=== PATIENT | male | born 1955 | race American Indian/Alaskan Native ===

== ENCOUNTER 2017-02-01 20:19 | Emergency (ER) | payer MEDICARE, OTHER ==
[2017-02-01 20:20] VITALS: BMI 25.7
[2017-02-01 20:36] VITALS: O2SAT 96
--- NOTE | 2017-02-01 21:28 | C.PDOC ---
History Of Present Illness 61 y/o male presents to ED with complaint of low grade fever and decreased appetite for 4-5 days. Patient was sent by PMD for workup. Patient notes he smokes 1/2 pack per day. Denies chills, nausea, vomiting, diarrhea, or other associated symptoms. Time Seen by Provider: 02/01/17 21:28 Chief Complaint (Nursing): Fever History Per: Patient History/Exam Limitations: no limitations Onset/Duration Of Symptoms: Days Current Symptoms Are (Timing): Still Present Location Of Pain: None Sick Contacts (Context): None Associated Symptoms: Fever. denies: Cough, Nausea, Vomiting, Diarrhea Ear Symptoms: Bilateral: None Recent travel outside of the [place]: No Past Medical History Reviewed: Historical Data, Nursing Documentation, Vital Signs Vital Signs: Last Vital Signs Temp 98.4 F 02/01/17 20:24 Pulse 85 02/01/17 20:24 Resp 18 02/01/17 20:24 BP 117/78 02/01/17 20:24 Pulse Ox 96 02/01/17 21:49 - Medical History PMH: Asthma, COPD, Depression, Fractures ([id number]), HIV, HTN, Hypercholesterolemia, Pneumonia, Rheumatoid Arthritis, Schizophrenia - [facility] Procedures CORONAR ARTERIOGR-2 CATH (03/06/15) LEFT HEART CARDIAC CATH (03/06/15) LT HEART ANGIOCARDIOGRAM (03/06/15) PERCUTANEOUS TRANSLUMINAL CORONARY ANGIOPLASTY [PTCA] (03/06/15) PROCEDURE ON SINGLE VESSEL (03/06/15) Family History: States: No Known Family Hx - Social History Hx Alcohol Use: No Hx Substance Use: No - Immunization History Hx Tetanus Toxoid Vaccination: Yes Hx Influenza Vaccination: Yes Hx Pneumococcal Vaccination: Yes Review Of Systems Constitutional: Positive for: Fever, Other (decreased appetite) ENT: Negative for: Throat Pain Cardiovascular: Negative for: Chest Pain Respiratory: Negative for: Cough, Shortness of Breath Gastrointestinal: Negative for: Nausea, Vomiting, Abdominal Pain, Diarrhea Skin: Negative for: Rash Neurological: Negative for: Headache, Dizziness Physical Exam - Physical Exam Appears: Non-toxic, Other (AAO) Skin: Normal Color, Warm, Dry Oral Mucosa: Moist Throat: Normal, No Erythema, No Exudate Chest: Symmetrical, Other (Portacath right chest) Cardiovascular: Rhythm Regular Respiratory: No Rales, Rhonchi (scattered), No Wheezing Gastrointestinal/Abdominal: Soft, No Tenderness, No Guarding, No Rebound Extremity: Normal ROM, Capillary Refill (< 2 sec. ) Neurological/Psych: Oriented x3 ED Course And Treatment - Laboratory Results Result Diagrams: 02/01/17 21:48 02/01/17 21:48 ECG: Interpreted By Me, Viewed By Me ECG Rhythm: Sinus Rhythm (77), Nonspecific Changes O2 Sat by Pulse Oximetry: 96 Pulse Ox Interpretation: Normal - Radiology CXR: Interpreted by Me, Viewed By Me Progress Note: CxR, VBG, bloodwork, IVFs, Toradol ordered. Reevaluation Time: 00:17 Reassessment Condition: Improved Medical Decision Making Medical Decision Making: Upon provider reevaluation patient is feeling better, is medically stable, and requires no further treatment in the ED at this time. Patient will be discharged home with Rx for akbuterol, zithromax. Counseling was provided and all questions were answered regarding diagnosis and need for follow up with Dr Hernandez. There is agreement to discharge plan. Return if symptoms persist or worsen. Disposition Counseled Patient/Family Regarding: Studies Performed, Diagnosis, Need For Followup, Rx Given - Disposition Referrals: Nicole Hernandez MD [Medical Doctor] - Disposition: HOME/ ROUTINE Disposition Time: 21:28 Condition: FAIR Additional Instructions: Please return if symptoms recur Prescriptions: Albuterol/Ipratropium [Duoneb 3 MG/3 Ml-0.5 MG/3 Ml 3 Ml] 3 ml IH QID #50 neb Azithromycin [Zithromax Tri-To] 500 mg PO DAILY #3 tablet Instructions: Acute Bronchitis (ED) - Clinical Impression Clinical Impression: Bronchitis - Scribe Statement The provider has reviewed the documentation as recorded by the Tootie Bustamante Provider Scribe Attestation: All medical record entries made by the Tootie were at my direction and personally dictated by me. I have reviewed the chart and agree that the record accurately reflects my personal performance of the history, physical exam, medical decision making, and the department course for this patient. I have also personally directed, reviewed, and agree with the discharge instructions and disposition.
[2017-02-01] MEDS ORDERED: Sodium Chloride 0.9% 1,000 ML IV ONE (21:39)
[2017-02-01 21:51] LABS: VENOUS BLOOD GAS PCO2 44 mmHg (40-60)
[2017-02-01 21:59] LABS: BASO % 0.1 % (0.0-2.0); EOS % 0.2 % (0.0-4.0); HEMATOCRIT 33.8 % (35.0-51.0); LYMPH # 2.6 K/uL (1.0-4.3); LYMPH % 34.7 % (20.0-40.0); MEAN CELL VOLUME 93.7 fL (80.0-94.0); MEAN CORPUSCULAR HEMOGLOBIN 30.4 pg (27.0-31.0); MEAN CORPUSCULAR HGB CONC 32.5 g/dL (33.0-37.0); MEAN PLATELET VOLUME 9.2 fL (7.2-11.7); MONO # 0.9 K/uL (0.0-0.8); MONO % 12.4 % (0.0-10.0); RED CELL DISTRIBUTION WIDTH 14.7 % (11.5-14.5); WHITE BLOOD COUNT 7.5 K/uL (4.8-10.8)
[2017-02-01 22:05] LABS: CHLORIDE 96 mmol/L (98-107); POTASSIUM 3.2 mmol/L (3.6-5.2); SODIUM 137 mmol/L (132-148)
[2017-02-01 22:07] LABS: ALKALINE PHOSPHATASE 81 U/L (38-126); AST/SGOT 20 U/L (17-59); BILIRUBIN,TOTAL 0.3 mg/dL (0.2-1.3); CARBON DIOXIDE 26 mmol/L (22-30); GFR AFRICAN-AMERICAN > 60; TOTAL PROTEIN 7.5 g/dL (6.3-8.3)
[2017-02-01 22:08] LABS: ALT/SGPT 12 U/L (21-72); BLOOD UREA NITROGEN 9 mg/dL (9-20); CALCIUM 8.8 mg/dl (8.6-10.4); GLUCOSE,RANDOM 96 mg/dL (75-110)
[2017-02-01 22:23] LABS: RBC URINE 35 /hpf (0-3); URINE BACTERIA OCC (<OCC); URINE BILIRUBIN NEGATIVE (NEGATIVE); URINE BLOOD 2+ (NEGATIVE); URINE COLOR Yellow (YELLOW); URINE GLUCOSE (UA) NORMAL (Normal); URINE KETONE NEGATIVE (NEGATIVE); URINE LEUKOCYTE ESTERASE NEG Leu/uL (Negative); URINE PROTEIN 2+ mg/dL (NEGATIVE); URINE UROBILINOGEN NORMAL mg/dL (0.2-1.0)
[2017-02-01 22:28] LABS: WBC URINE 10 /hpf (0-5)
[2017-02-01] MEDS ORDERED: Potassium Chloride 10 mEq ER Tab PO STA (22:29)
[2017-02-01] MEDS ORDERED: Potassium Chloride 20 mEq ER Tab PO ONE (23:17)
[2017-02-01] MEDS ORDERED: Piperacillin/Tazobact 3.375 gm 100 ML IVPB STA (23:27)
[2017-02-01] MEDS ORDERED: Piperacillin/Tazobact 3.375 gm 100 ML IVPB ONE (23:46)
[2017-02-02 00:34] VITALS: BP 148/88; PULSE 64; RESP 16; TEMP 98.3
--- NOTE | 2017-02-02 11:24 | RAD ---
HISTORY: SOB COMPARISON: Chest x-ray performed 12/08/16, CTA chest performed 01/05/16 TECHNIQUE: Chest PA and lateral FINDINGS: Distal tip of right-sided MediPort extends to the cavoatrial junction. LUNGS: Extensive emphysematous changes. Biapical pleural thickening. Mild bibasilar atelectasis. No focal consolidation. Please note that chest x-ray has limited sensitivity for the detection of pulmonary masses. PLEURA: No significant pleural effusion identified. No definite pneumothorax . CARDIOVASCULAR: Heart size appears within normal limits. OSSEOUS STRUCTURES: Partially imaged severe degenerative changes of the right shoulder. Osseous demineralization. Degenerative changes. VISUALIZED UPPER ABDOMEN: Unremarkable. OTHER FINDINGS: None. IMPRESSION: Right-sided MediPort. Biapical pleural thickening. Mild bibasilar atelectasis. Extensive emphysematous changes.
--- NOTE | 2017-04-03 14:45 | CARD ---
APPROVED REPORT EKG Measurement Heart [id number] CO 148P50 [id number] <Conclusion> Normal sinus rhythm Nonspecific ST and T wave abnormality Abnormal ECG
== END 2017-02-02 00:33 | disposition home or self-care (01) ==
LOC: C.ER 20:19
DX: J40 Bronchitis, not specified as acute or chronic (principal); E87.6 Hypokalemia; Z72.0 Tobacco use
CPT/HCPCS: 71020; 80053; 81001; 82803; 84484; 85025; 85730; 87040; 87086; 96361; 96365; 96375; 99284; J1885; J2543; J7040

== ENCOUNTER 2017-07-15 15:40 | Emergency (ER) | payer MEDICARE, OTHER ==
[2017-07-15 15:41] VITALS: BMI 24.5
[2017-07-15 16:03] VITALS: BP 138/81; PULSE 75; RESP 14; TEMP 97.9; O2SAT 95
--- NOTE | 2017-07-15 16:20 | C.PDOC ---
History Of Present Illness Antelmo Marshall is a 62 year old male, with a past medical history of rheumatoid arthritis and diabetes, who presents to the emergency department with his complaining of R hip pain radiating to foot associated with numbness and tingling x years. Patient describes the pain as a burning sensation and also reports bilateral shoulder pain for years. He denies any fever or shortness of breath. convinced patient to come to ED today because he has been complaining of these pains for so long. PMD: Nicole Hernandez Time Seen by Provider: 07/15/17 15:53 Chief Complaint (Nursing): Lower Extremity Problem/Injury History Per: Patient History/Exam Limitations: no limitations Onset/Duration Of Symptoms: Days (x2 months) Current Symptoms Are (Timing): Still Present Additional History Per: Family Past Medical History Reviewed: Historical Data, Nursing Documentation, Vital Signs Vital Signs: Last Vital Signs Temp 97.9 F 07/15/17 16:00 Pulse 75 07/15/17 16:00 Resp 14 07/15/17 16:00 BP 138/81 07/15/17 16:00 Pulse Ox 95 07/15/17 16:31 - Medical History PMH: Asthma, COPD, Depression, Fractures ([id number]), HIV, HTN, Hypercholesterolemia, Pneumonia, Rheumatoid Arthritis, Schizophrenia Denies: Chronic Kidney Disease Surgical History: Denies: Pacemaker - [facility] Procedures CORONAR ARTERIOGR-2 CATH (03/06/15) LEFT HEART CARDIAC CATH (03/06/15) LT HEART ANGIOCARDIOGRAM (03/06/15) PERCUTANEOUS TRANSLUMINAL CORONARY ANGIOPLASTY [PTCA] (03/06/15) PROCEDURE ON SINGLE VESSEL (03/06/15) Family History: States: Unknown Family Hx - Social History Hx Tobacco Use: Yes (<10 cigarettes daily) Hx Alcohol Use: No Hx Substance Use: No - Immunization History Hx Tetanus Toxoid Vaccination: Yes Hx Influenza Vaccination: No Hx Pneumococcal Vaccination: Yes Review Of Systems Except As Marked, All Systems Reviewed And Found Negative. Constitutional: Negative for: Fever Respiratory: Negative for: Shortness of Breath Musculoskeletal: Positive for: Shoulder Pain, Other (b/l hip pain radiating to feet) Physical Exam - Physical Exam Additional Physical Exam Comments: Constitutional: No acute distress. Head: Normocephalic. Atraumatic. Eyes: PERRL. ENT: Moist mucous membranes. Neck: Supple. Cardiovascular: Regular rate. Radial pulse 2+ bilaterally. Chest: No tenderness. Respiratory: Clear to auscultation bilaterally. GI: Soft. Nontender. Nondistended. Back: No CVA tenderness. Musculoskeletal: Full ROM x4 shoulder, hips, and knees. Positive straight leg raise on right. No swelling of extremities. Skin: No rash. Neurologic: Alert, no focal deficit. Sensation to touch intact bilaterally. ED Course And Treatment O2 Sat by Pulse Oximetry: 95 (RA) Pulse Ox Interpretation: Normal Medical Decision Making Medical Decision Making: Initial Plan: --Toradol 60 mg IM Encouraged patient to seek further evaluation with PMD for chronic pains. No acute symptoms, no indication of sepsis, CVA, or any other emergent findings. Scribe Attestation Written by Carl Malik acting as a scribe for Kwan James MD All medical record entries made by the Scribe were at my direction and personally dictated by me. I have reviewed the chart and agree that the record accurately reflects my personal performance of the history, physical exam, medical decision making, and the department course for this patient. I have also personally directed, reviewed, and agree with the discharge instructions and disposition. Disposition - Disposition Referrals: Nicole Hernandez MD [Medical Doctor] - Disposition: HOME/ ROUTINE Disposition Time: 16:19 Condition: STABLE Instructions: Lumbar Radiculopathy (ED), Arthritis (ED) Forms: [employer] (Lithuanian) - Clinical Impression Clinical Impression: Shoulder pain, Hip pain
== END 2017-07-15 16:50 | disposition home or self-care (01) ==
LOC: C.ER 15:40
DX: M25.551 Pain in right hip (principal); M25.512 Pain in left shoulder; M25.511 Pain in right shoulder
CPT/HCPCS: 82948; 96372; 99284; J1885

== ENCOUNTER 2017-09-04 17:32 | Emergency (ER) | payer MEDICARE, OTHER ==
[2017-09-04 17:33] VITALS: BMI 25.8
[2017-09-04 17:44] VITALS: TEMP 97.7
[2017-09-04] MEDS ORDERED: Sodium Chloride 0.9% 1,000 ML IV ONE (19:12)
[2017-09-04 19:51] LABS: RBC URINE 1 /hpf (0-3); URINE BILIRUBIN NEGATIVE (NEGATIVE); URINE BLOOD NEGATIVE (NEGATIVE); URINE COLOR Yellow (YELLOW); URINE GLUCOSE (UA) NORMAL (Normal); URINE KETONE NEGATIVE (NEGATIVE); URINE LEUKOCYTE ESTERASE NEG Leu/uL (Negative); URINE PROTEIN 2+ mg/dL (NEGATIVE); URINE UROBILINOGEN NORMAL mg/dL (0.2-1.0); WBC URINE 2 /hpf (0-5)
[2017-09-04 20:16] LABS: CHLORIDE 100 mmol/L (98-107)
[2017-09-04 20:17] LABS: POTASSIUM 3.4 mmol/L (3.6-5.2); SODIUM 137 mmol/L (132-148)
[2017-09-04 20:19] LABS: ALB/GLOB RATIO 1.1 (1.0-2.1); AST/SGOT 20 U/L (17-59); BILIRUBIN,TOTAL 0.6 mg/dL (0.2-1.3); CARBON DIOXIDE 30 mmol/L (22-30); GFR AFRICAN-AMERICAN > 60; TOTAL PROTEIN 7.3 g/dL (6.3-8.3)
[2017-09-04 20:20] LABS: ALKALINE PHOSPHATASE 92 U/L (38-126); ALT/SGPT 29 U/L (21-72); BLOOD UREA NITROGEN 11 mg/dL (9-20); CALCIUM 8.7 mg/dl (8.6-10.4); GLUCOSE,RANDOM 81 mg/dL (75-110)
[2017-09-04 21:00] LABS: BASO % 0.3 % (0.0-2.0); EOS # 0.1 K/uL (0.0-0.7); HEMATOCRIT 36.6 % (35.0-51.0); LYMPH # 3.1 K/uL (1.0-4.3); LYMPH % 22.9 % (20.0-40.0); MEAN CELL VOLUME 98.4 fL (80.0-94.0); MEAN CORPUSCULAR HEMOGLOBIN 33.2 pg (27.0-31.0); MEAN CORPUSCULAR HGB CONC 33.8 g/dL (33.0-37.0); MEAN PLATELET VOLUME 8.9 fL (7.2-11.7); MONO # 0.7 K/uL (0.0-0.8); MONO % 5.4 % (0.0-10.0); RED CELL DISTRIBUTION WIDTH 13.3 % (11.5-14.5); WHITE BLOOD COUNT 13.7 K/uL (4.8-10.8)
--- NOTE | 2017-09-04 21:59 | C.PDOC ---
History Of Present Illness Patient presents to ED c/o diffuse body aches, particularly in his B/L shoulders. He also c/o numbness/tingling pain in his feet. Patient has h/o rheumatoid arthritiis, HIV (on HAART), DM, HTN, COPD. He denies falls/injuries , chest pain, SOB, cough, fever, rash. He states he has been seen previously by orthopedics, was offered physical therapy but has not has surgery of shoulders. Time Seen by Provider: 09/04/17 18:32 Chief Complaint (Nursing): Medical Clearance History Per: Patient, Family ( at bedside ) History/Exam Limitations: no limitations Onset/Duration Of Symptoms: Hrs Current Symptoms Are (Timing): Still Present Severity: Moderate Past Medical History Reviewed: Historical Data, Nursing Documentation, Vital Signs Vital Signs: Last Vital Signs Temp 97.7 F 09/04/17 17:41 Pulse 73 09/04/17 22:10 Resp 20 09/04/17 22:10 BP 154/93 H 09/04/17 22:10 Pulse Ox 97 09/04/17 22:16 - Medical History PMH: Asthma, COPD, Depression, Fractures (RT.[id number].AGO), HIV, HTN, Hypercholesterolemia, Pneumonia, Rheumatoid Arthritis, Schizophrenia Surgical History: No Surg Hx Other Surgeries: right chest portacath - [facility] Procedures CORONAR ARTERIOGR-2 CATH (03/06/15) LEFT HEART CARDIAC CATH (03/06/15) LT HEART ANGIOCARDIOGRAM (03/06/15) PERCUTANEOUS TRANSLUMINAL CORONARY ANGIOPLASTY [PTCA] (03/06/15) PROCEDURE ON SINGLE VESSEL (03/06/15) Family History: States: No Known Family Hx - Social History Hx Tobacco Use: Yes (<10 cigarettes daily) Hx Alcohol Use: No Hx Substance Use: No - Immunization History Hx Tetanus Toxoid Vaccination: Yes Hx Influenza Vaccination: No Hx Pneumococcal Vaccination: Yes Review Of Systems Except As Marked, All Systems Reviewed And Found Negative. Constitutional: Negative for: Fever, Chills Cardiovascular: Negative for: Chest Pain, Palpitations Respiratory: Negative for: Cough, Shortness of Breath Gastrointestinal: Negative for: Nausea, Vomiting, Abdominal Pain, Diarrhea Musculoskeletal: Positive for: Shoulder Pain (B/L), Other (body aches) Physical Exam - Physical Exam Appears: Well, Non-toxic, In Acute Distress (in moderate pain) Skin: Normal Color, Warm, Dry, No Rash Eye(s): bilateral: Normal Inspection Oral Mucosa: Moist Chest: Symmetrical Cardiovascular: Rhythm Regular Respiratory: Normal Breath Sounds, No Rales, No Rhonchi, No Wheezing Gastrointestinal/Abdominal: Normal Exam, Bowel Sounds, Soft, No Tenderness Back: Normal Inspection, No CVA Tenderness, No Vertebral Tenderness, No Paraspinal Tenderness Extremity: Normal ROM (decreased ROM B/L shoulder R>L, due to pain), Tenderness (B/L shoulders diffuse TTP without deformity/erythema/ swelling), Capillary Refill (< 2sec all digits), No Deformity Extremity: Bilateral: Atraumatic, Normal Color And Temperature Pulses: Left Radial: Normal, Right Radial: Normal, Left Dorsalis Pedis: Normal, Right Dorsalis Pedis: Normal Neurological/Psych: Oriented x3, Normal Speech, Normal Cognition Gait: Steady ED Course And Treatment - Laboratory Results Result Diagrams: 09/04/17 20:57 09/04/17 19:42 O2 Sat by Pulse Oximetry: 97 (RA) Pulse Ox Interpretation: Normal - Other Rad shoulders B/L X-Ray: Interpreted by Me, Viewed By Me (osteopenia/porosis and arthritic changes of B/L humeral heads, no fractures/dislocations) Progress Note: Blood work, Xrays of B/L shoulders, infleunza swab ordered and reviewed. Patient given IV NS bolus, IV solumedrol (for RA exacerbation), and IV toradol. Reevaluation Time: 22:05 Reassessment Condition: Improved (On reassessment, patient is resting comfortably and states he feels better. He is requesting something for numbness /tingling in B/L feet - suspect peripheral neuropathy due to diabetes/HIV. Rxs given for gabapentin, prednisone (for RA exacerbation) and naprosyn. He was instructed to follow up with PMD in 1-2 days, and with orthopedics within 1 week. Patient understands he should return to ED if symptoms worsen.) Disposition Counseled Patient/Family Regarding: Studies Performed, Diagnosis, Need For Followup, Rx Given - Disposition Referrals: Nicole Hernandez MD [Medical Doctor] - Jn Larsen III, MD [Staff Provider] - Disposition: HOME/ ROUTINE Disposition Time: 22:00 Condition: STABLE Additional Instructions: FOLLOW UP WITH ORTHOPEDICS WITHIN 1 WEEK USE MEDICATIONS DIRECTED RETURN TO ER IF SYMPTOMS WORSEN Prescriptions: Gabapentin 300 mg PO TID #90 capsule Naproxen 375 mg PO BID PRN #20 tablet PRN Reason: pain predniSONE [predniSONE Tab] 40 mg PO DAILY #6 tab Instructions: Rheumatoid Arthritis (ED), Peripheral Neuropathy (ED) Forms: [employer] (Amharic) Print Language: WELSH - POA Present On Arrival: None - Clinical Impression Clinical Impression: Rheumatoid arthritis, Shoulder arthritis, Neuropathy, peripheral
[2017-09-04 22:10] VITALS: BP 154/93; PULSE 73; RESP 20
[2017-09-04 22:18] VITALS: O2SAT 97
--- NOTE | 2017-09-05 09:23 | RAD ---
PROCEDURE: Radiographs of both shoulders HISTORY: b/l shoulder pain COMPARISON: No prior. FINDINGS: BONES: Right shoulder: Mixed mineralization consistent sclerosis of the humeral head noted. There is some flattening of the superolateral humeral head. It is difficult to exclude any concomitant fractures here. No gross cortical fractures are noted. However prior old fractures with secondary cystic subchondral cystic changes with or without avascular necrosis is difficult to exclude. Findings are noted bilaterally. Cystic changes also extend into each glenoid fossa-right greater than left. Left shoulder: Same as in the right shoulder. JOINTS: Right shoulder: Glenohumeral advanced osteoarthrosis. Mild right acromioclavicular joint arthrosis. Left shoulder: Glenohumeral advanced osteoarthrosis. Mild left acromioclavicular joint arthrosis SOFT TISSUES: Right shoulder: Bilateral periarticular shoulder ossific occasion/ calcifications-calcific debris, loose bodies, calcific tendinopathy and/or calcific bursitis or all differential considerations. Left shoulder: Similar findings to this mention in the right shoulder are present in the left OTHER FINDINGS: One of the images appears to be mislabeled as left the transscapular view bile was repeated and also labeled left that will showing the Port-A-Cath is the right side IMPRESSION: Grossly abnormal humeral head bone mineralization. Possibility of a prior trauma including prior dislocations with secondary humeral head remodeling/slight flattening is a consideration. Secondary osteoarthritic changes are noted. Underlying sub chondral extensive coalescence cystic changes are present in each shoulder right greater than left. The possibility of avascular necrosis in each shoulder needs to be considered. No acute fractures or acute dislocations are appreciated.
--- NOTE | 2017-09-05 12:19 | CARD ---
APPROVED REPORT EKG Measurement Heart [id number] OR 142P55 [id number] <Conclusion> Normal sinus rhythm Nonspecific ST and T wave abnormality Abnormal ECG
== END 2017-09-04 22:23 | disposition home or self-care (01) ==
LOC: C.ER 17:32
DX: M06.812 Other specified rheumatoid arthritis, left shoulder (principal); M06.811 Other specified rheumatoid arthritis, right shoulder; G62.9 Polyneuropathy, unspecified; I10 Essential (primary) hypertension; E78.00 Pure hypercholesterolemia, unspecified; F17.210 Nicotine dependence, cigarettes, uncomplicated
CPT/HCPCS: 73030; 80053; 81001; 82948; 85025; 87804; 93005; 96361; 96374; 96375; 99282; G0480; J1885; J2930; J7040

== ENCOUNTER 2018-09-12 11:39 | Emergency (ER) | payer MEDICARE, OTHER ==
[2018-09-12 11:40] VITALS: BMI 24.2
[2018-09-12 11:44] VITALS: BP 152/83; PULSE 71; RESP 18; TEMP 98; O2SAT 98
--- NOTE | 2018-09-12 12:26 | C.PDOC ---
History Of Present Illness 63 year old male with a history of HIV, paranoid schizophrenia, and sciatica presents to the ED with his for evaluation of bilateral lower back pain that radiates down to the right leg for 6 days. Patient admits to taking weed for the pain, noticed mild improvement. Denies trauma, leg weakness, numbness, tingling, fever, history of kidney stones/issues, and any other associated symptoms. Time Seen by Provider: 09/12/18 11:56 Chief Complaint (Nursing): Back Pain History Per: Patient History/Exam Limitations: no limitations Onset/Duration Of Symptoms: Days Current Symptoms Are (Timing): Still Present Past Medical History Reviewed: Historical Data, Nursing Documentation, Vital Signs Vital Signs: Last Vital Signs Temp 98 F 09/12/18 11:43 Pulse 71 09/12/18 11:43 Resp 18 09/12/18 11:43 BP 152/83 H 09/12/18 11:43 Pulse Ox 98 09/12/18 11:43 - Medical History PMH: Asthma, COPD, Depression, Fractures ([id number].AGO), HIV, HTN, Hypercholesterolemia, Pneumonia, Rheumatoid Arthritis, Schizophrenia Denies: Chronic Kidney Disease Surgical History: Denies: Pacemaker - [facility] Procedures CORONAR ARTERIOGR-2 CATH (03/06/15) LEFT HEART CARDIAC CATH (03/06/15) LT HEART ANGIOCARDIOGRAM (03/06/15) PERCUTANEOUS TRANSLUMINAL CORONARY ANGIOPLASTY [PTCA] (03/06/15) PROCEDURE ON SINGLE VESSEL (03/06/15) Family History: States: Unknown Family Hx - Social History Hx Tobacco Use: Yes (<10 cigarettes daily) Hx Alcohol Use: No Hx Substance Use: No - Immunization History Hx Tetanus Toxoid Vaccination: Yes Hx Influenza Vaccination: No Hx Pneumococcal Vaccination: Yes Review Of Systems Constitutional: Negative for: Fever, Other (trauma. ) Musculoskeletal: Positive for: Back Pain (bilateral lower back pain. ) Neurological: Negative for: Weakness, Numbness, Incoordination, Other Physical Exam - Physical Exam Appears: Well, Non-toxic, No Acute Distress Skin: Normal Color, Warm, Dry Head: Atraumatic, Normacephalic Eye(s): bilateral: Normal Inspection Neck: Normal ROM, Supple Back: No CVA Tenderness, No Vertebral Tenderness, No Paraspinal Tenderness, Other (tender to PSIS. ) Neurological/Psych: Oriented x3, Normal Speech, Normal Motor, Normal Sensation, Normal Reflexes, Other (normal DTR. ) ED Course And Treatment O2 Sat by Pulse Oximetry: 98 Medical Decision Making Medical Decision Making: Plan: -Toradol Progress/Update: : Patient requests to leave once given Toradol without reassessment. Patient advised to follow up with PMD. Disposition Counseled Patient/Family Regarding: Diagnosis, Need For Followup - Disposition Disposition: HOME/ ROUTINE Disposition Time: : Prescriptions: Ketorolac Tromethamine [Toradol] 10 mg PO Q6 PRN #15 tab PRN Reason: Pain, Severe (8-10) Instructions: Low Back Pain in Adults, Sciatica (DC) Forms: [employer] (Monegasque), General Discharge Instructions - POA Present On Arrival: None - Clinical Impression Clinical Impression: Low back pain, Sciatica - PA / SUPERVISOR RECORDS CHANGE / Resident Statement MD/DO has reviewed & agrees with the documentation as recorded. - Scribe Statement The provider has reviewed the documentation as recorded by the Scribe (Marley Kong) Provider Attestation: All medical record entries made by the Scribe were at my direction and personally dictated by me. I have reviewed the chart and agree that the record accurately reflects my personal performance of the history, physical exam, medical decision making, and the department course for this patient. I have also personally directed, reviewed, and agree with the discharge instructions and disposition.
== END 2018-09-12 12:37 | disposition home or self-care (01) ==
LOC: C.ER 11:39
DX: M54.40 Lumbago with sciatica, unspecified side (principal); I10 Essential (primary) hypertension; E78.00 Pure hypercholesterolemia, unspecified; M06.9 Rheumatoid arthritis, unspecified; Z21 Asymptomatic human immunodeficiency virus [HIV] infection status
CPT/HCPCS: 96372; 99283; J1885

== ENCOUNTER → 2019-01-04 | Outpatient (CLI) | payer MEDICARE, OTHER | LOC: C.LAB 11:46 | DX: E11.9 Type 2 diabetes mellitus without complications (principal); D64.9 Anemia, unspecified ==

== ENCOUNTER 2019-01-19 15:58 | Emergency (ER) | payer MEDICARE, OTHER ==
[2019-01-19 15:59] VITALS: BMI 23.9
[2019-01-19 16:09] VITALS: BP 156/88; PULSE 74; RESP 17; TEMP 98.4; O2SAT 95
--- NOTE | 2019-01-19 16:52 | RAD ---
PROCEDURE: Left Hip X-ray Radiographs. HISTORY: left hip/pelvic pain after fall COMPARISON: None. TECHNIQUE: 2 views obtained. FINDINGS: BONES: No evidence of acute fracture JOINTS: Moderate to severe osteoarthritic changes noted bilaterally. SOFT TISSUES: Normal. OTHER FINDINGS: None. IMPRESSION: No evidence of acute fracture or dislocation. Moderate to severe osteoarthritic changes.
--- NOTE | 2019-01-19 17:07 | C.PDOC ---
History Of Present Illness 63 y/o male comes in complaining of left hip pain and bilateral shoulder pain, both chronic in nature. She reports she tripped and fell today, landing on his buttocks and left hip, which worsened the pain. Patient denies any head injuries, LOC, chest pain, SOB, or palpitations. Time Seen by Provider: 01/19/19 16:03 Chief Complaint (Nursing): Medical Clearance History Per: Patient History/Exam Limitations: no limitations Onset/Duration Of Symptoms: Days Current Symptoms Are (Timing): Still Present Past Medical History Reviewed: Historical Data, Nursing Documentation, Vital Signs Vital Signs: Last Vital Signs Temp 98.4 F 01/19/19 16:08 Pulse 74 01/19/19 16:08 Resp 17 01/19/19 16:08 BP 156/88 H 01/19/19 16:08 Pulse Ox 95 01/19/19 16:08 - Medical History PMH: Asthma, COPD, Depression, Fractures ([id number]), HIV, HTN, Hypercholesterolemia, Pneumonia, Rheumatoid Arthritis, Schizophrenia Denies: Chronic Kidney Disease Surgical History: Denies: Pacemaker - [facility] Procedures CORONAR ARTERIOGR-2 CATH (03/06/15) LEFT HEART CARDIAC CATH (03/06/15) LT HEART ANGIOCARDIOGRAM (03/06/15) PERCUTANEOUS TRANSLUMINAL CORONARY ANGIOPLASTY [PTCA] (03/06/15) PROCEDURE ON SINGLE VESSEL (03/06/15) Family History: States: No Known Family Hx - Social History Hx Tobacco Use: Yes (<10 cigarettes daily) Hx Alcohol Use: No Hx Substance Use: No - Immunization History Hx Tetanus Toxoid Vaccination: Yes Hx Influenza Vaccination: No Hx Pneumococcal Vaccination: Yes Review Of Systems Constitutional: Negative for: Fever, Chills Cardiovascular: Negative for: Chest Pain, Palpitations Respiratory: Negative for: Shortness of Breath Gastrointestinal: Negative for: Vomiting Musculoskeletal: Positive for: Shoulder Pain (bilateral), Other (Left hip pain). Negative for: Neck Pain Neurological: Negative for: Other (LOC) Physical Exam - Physical Exam Appears: Non-toxic, Other (In mild pain) Skin: Warm, Dry Head: Atraumatic, Normacephalic Eye(s): bilateral: Normal Inspection Oral Mucosa: Moist Neck: Supple Cardiovascular: Rhythm Regular, No Murmur Respiratory: Normal Breath Sounds, No Rales, No Rhonchi, No Wheezing Extremity: Tenderness (left lateral hip mildly tender to palpation, no swelling, ecchymosis, or deformity), No Deformity, Other (No external rotation of left leg) Extremity: Bilateral: Normal Color And Temperature Neurological/Psych: Oriented x3, Normal Speech ED Course And Treatment O2 Sat by Pulse Oximetry: 95 (RA) Pulse Ox Interpretation: Normal - Other Rad Hip/Pelvis XR X-Ray: Read By Radiologist Interpretation: FINDINGS: BONES: No evidence of acute fracture. JOINTS: Moderate to severe osteoarthritic changes noted bilaterally. SOFT TISSUES: Normal. OTHER FINDINGS: None. IMPRESSION: No evidence of acute fracture or dislocation. Moderate to severe osteoarthritic changes. Progress Note: Patient was given toradol and flexeril for the pain. Lidoderm patch was applied and patient was given prednisone. XR of hip/pelvis ordered, which showed no acute fractures. Patient will be discharged home. Disposition Counseled Patient/Family Regarding: Studies Performed, Diagnosis, Need For Followup, Rx Given - Disposition Referrals: Wally Thompson MD [Medical Doctor] - Jn Larsen III, MD [Staff Provider] - Disposition: HOME/ ROUTINE Disposition Time: 17:05 Condition: STABLE Additional Instructions: FOLLOW UP WITH YOUR DOCTOR IN 1-2 DAYS, AND WITH ORTHOPEDICS WITHIN 1 WEEK USE PAIN MEDICATIONS DIRECTED/NEEDED RETURN TO ER IF SYMPTOMS WORSEN Prescriptions: Cyclobenzaprine [Flexeril] 10 mg PO BID PRN #15 tab PRN Reason: Muscle Spasm Naproxen 375 mg PO BID PRN #20 tablet PRN Reason: pain predniSONE [predniSONE Tab] 40 mg PO DAILY #6 tab Instructions: Hip Pain (DC) Forms: [employer] (Cape Verdean) Print Language: HEBREW - POA Present On Arrival: Falls Or Trauma - Clinical Impression Clinical Impression: Chronic left hip pain - Scribe Statement The provider has reviewed the documentation as recorded by the Tootie Schwartz Provider Attestation: All medical record entries made by the Tootie were at my direction and pe rsonally dictated by me. I have reviewed the chart and agree that the record accurately reflects my personal performance of the history, physical exam, medical decision making, and the department course for this patient. I have also personally directed, reviewed, and agree with the discharge instructions and disposition.
[2019-01-19] MEDS ORDERED: Lidocaine 5% Patch TD STA (17:15)
[2019-01-19] MEDS ORDERED: Lidocaine 5% Patch TD ONE (17:28)
== END 2019-01-19 17:33 | disposition home or self-care (01) ==
LOC: C.ER 15:58
DX: G89.29 Other chronic pain (principal); M25.552 Pain in left hip; E78.00 Pure hypercholesterolemia, unspecified; I10 Essential (primary) hypertension; M06.9 Rheumatoid arthritis, unspecified; F20.9 Schizophrenia, unspecified; F17.210 Nicotine dependence, cigarettes, uncomplicated; J44.9 Chronic obstructive pulmonary disease, unspecified
CPT/HCPCS: 73502; 96372; 99284; J1885

== ENCOUNTER 2019-02-11 16:02 | Emergency (ER) | payer MEDICARE, OTHER ==
[2019-02-11 16:02] VITALS: BMI 23.9
[2019-02-11 16:17] VITALS: BP 131/85; PULSE 85; RESP 19; TEMP 98.2; O2SAT 97
--- NOTE | 2019-02-11 16:34 | C.PDOC ---
History Of Present Illness Patient is a 63 year old male, with a PMHx of sciatica, chronic left hip pain and bilateral shoulder pain, who presents to the ED with his c/o persistent left hip pain that has worsened over the last 22 days. Patient was seen in the ED on 01/19 s/p a fall. Of the medications patient was discharged with, patient states limited relief of pain with Naproxen, occasionally takes Flexeril, and no steroid use. He was previously diagnosed with sciatica, but does not follow up with his pain management doctor. He denies any new weakness, numbness, CP, or SOB. MDM PT ADVISED OF DEPARTMENT PAIN POLICY. Time Seen by Provider: 02/11/19 16:12 Chief Complaint (Nursing): Hip Pain History Per: Patient, Family () History/Exam Limitations: no limitations Onset/Duration Of Symptoms: Days (22) Current Symptoms Are (Timing): Still Present Recent travel outside of the [place]: No Additional History Per: Patient, Family Past Medical History Reviewed: Historical Data, Nursing Documentation, Vital Signs Vital Signs: Last Vital Signs Temp 98.2 F 02/11/19 16:06 Pulse 85 02/11/19 16:06 Resp 19 02/11/19 16:06 BP 131/85 02/11/19 16:06 Pulse Ox 97 02/11/19 16:06 - Medical History PMH: Asthma, COPD, Depression, Fractures ([id number]), HIV, HTN, Hypercholesterolemia, Pneumonia, Rheumatoid Arthritis, Schizophrenia Denies: Chronic Kidney Disease Surgical History: No Surg Hx Denies: Pacemaker - [facility] Procedures CORONAR ARTERIOGR-2 CATH (03/06/15) LEFT HEART CARDIAC CATH (03/06/15) LT HEART ANGIOCARDIOGRAM (03/06/15) PERCUTANEOUS TRANSLUMINAL CORONARY ANGIOPLASTY [PTCA] (03/06/15) PROCEDURE ON SINGLE VESSEL (03/06/15) Family History: States: Unknown Family Hx - Social History Hx Tobacco Use: Yes (<10 cigarettes daily) Hx Alcohol Use: No Hx Substance Use: No - Immunization History Hx Tetanus Toxoid Vaccination: Yes Hx Influenza Vaccination: Yes Hx Pneumococcal Vaccination: Yes Review Of Systems Except As Marked, All Systems Reviewed And Found Negative. Cardiovascular: Negative for: Chest Pain Respiratory: Negative for: Shortness of Breath Musculoskeletal: Positive for: Leg Pain (left hip pain) Neurological: Negative for: Weakness, Numbness Physical Exam - Physical Exam Appears: Non-toxic, No Acute Distress Skin: Normal Color, Warm, Dry Head: Atraumatic, Normacephalic Neck: Normal ROM, Supple Chest: Symmetrical, No Deformity Cardiovascular: Rhythm Regular, No Murmur Respiratory: Other (NARD) Gastrointestinal/Abdominal: Soft Extremity: Normal ROM (of left hip) Extremity: Left: Painful To Bear Weight (limited weight bare on left hip) Neurological/Psych: Oriented x3, Normal Cranial Nerves, Normal Motor, Normal Sensation, Normal Reflexes Gait: With Assistance (of cane) ED Course And Treatment O2 Sat by Pulse Oximetry: 97 (on RA) Pulse Ox Interpretation: Normal Progress Note: Plan: Tylenol 975mg PO. Valium 5mg PO. Neurontin 300mg PO. Toradol 60mg IM. Lidoderm 1ea TD Progress - Data Reviewed Data Reviewed: Old records Medical Decision Making Medical Decision Making: PT ADVISED OF DEPARTMENT PAIN POLICY. Extensive patient education of pain management. Advised patient need for follow up with PMD or painting machine operator and possible MRI imaging for sciatica reevaluation. Patient agrees with discharge plan. Disposition Counseled Patient/Family Regarding: Diagnosis, Need For Followup, Rx Given - Disposition Referrals: [facility] [Outside] [facility] [Outside] Navneet Evans MD [Staff Provider] - Mane Nagy MD [Staff Provider] - Disposition: HOME/ ROUTINE Disposition Time: 16:34 Condition: IMPROVED Additional Instructions: TAKE MEDICATION PRESCRIBED AND ON SCHEDULE WITHOUT FAIL. FOLLOW YOU YOUR PMD AND/OR PAIN MANAGEMENT, POSSIBLE REEVALUATION OF SCIATICA. APPLY PATCH TO AFFECTED AREA. MAX 3 PATCHES AT A TIME. REMOVE PATCH 12 HOURS AFTER INITIAL APPLICATION. ALTERNATE 12 HOURS ON, 12 HOURS OFF. Prescriptions: Acetaminophen [Tylenol Extra Strength] 2 tab PO Q6 #30 tablet Cyclobenzaprine [Flexeril] 10 mg PO TID #15 tab Gabapentin [Neurontin] 300 mg PO TID #30 cap Ibuprofen [Motrin] 600 mg PO Q6 #30 tab Lidocaine 5% [Lidoderm] 1 ea TD PRN PRN #10 patch PRN Reason: Pain, Moderate (4-7) Instructions: Sciatica (DC) Forms: [employer] (Syrian) - Clinical Impression Clinical Impression: Chronic left hip pain, Sciatica - Scribe Statement The provider has reviewed the documentation as recorded by the Carringtonibchris Toussaint All medical record entries made by the Tootie were at my direction and personally dictated by me. I have reviewed the chart and agree that the record accurately reflects my personal performance of the history, physical exam, medical decision making, and the department course for this patient. I have also personally directed, reviewed, and agree with the discharge instructions and disposition.
[2019-02-11] MEDS ORDERED: Lidocaine 5% Patch TD STA (16:38)
[2019-02-11] MEDS ORDERED: Lidocaine 5% Patch TD ONE (16:49)
== END 2019-02-11 17:13 | disposition home or self-care (01) ==
LOC: C.ER 16:02
DX: M54.30 Sciatica, unspecified side (principal); M25.552 Pain in left hip; G89.29 Other chronic pain
CPT/HCPCS: 96372; 99284; J1885

== ENCOUNTER 2019-03-07 12:36 | Outpatient (CLI) | payer MEDICARE, OTHER | END 2019-03-07 12:37 | disposition home or self-care (01) | LOC: C.RT 12:36 ==

== ENCOUNTER 2019-03-11 17:14 | Outpatient (CLI) | payer MEDICARE, OTHER | END 2019-03-11 17:15 | disposition home or self-care (01) | LOC: C.MRIC 17:14 | DX: M25.552 Pain in left hip (principal) ==